=== PATIENT | male | born 1965 | race Caucasian/White ===

== ENCOUNTER → 2018-10-13 | Outpatient (CLI) | payer OTHER | END | disposition home or self-care (01) | LOC: RAH 14:21 | PROVIDERS: ATTEND Internal Medicine | DX: R35.0 Frequency of micturition (principal) | CPT/HCPCS: 76770 ==

== ENCOUNTER → 2025-08-03 | Outpatient (CLI) | payer BC ==
[2025-08-03 13:32] LABS: ASPARTATE AMINOTRANSFERASE 18.0 U/L (10-37); CREATININE 0.8 mg/dL (0.5-1.3); GLOMERULAR FILTR. RATE CALC 100.0 mL/min (>90); GLUCOSE,RANDOM 95.0 mg/dL (70-105); SODIUM SERUM 135.0 mmol/L (136-145); TOTAL PROTEIN, SERUM 7.3 g/dL (6.0-8.3); UREA NITROGEN, BLOOD 21.0 mg/dL (7-18)
== END | disposition home or self-care (01) ==
LOC: LAB 12:37
PROVIDERS: ATTEND Internal Medicine
DX: Z01.812 Encounter for preprocedural laboratory examination (principal)
CPT/HCPCS: 36415; 80053

== ENCOUNTER → 2025-08-08 | Outpatient (CLI) | payer BC ==
--- NOTE | 2025-08-08 20:02 | HMCIMG ---
EXAM: CR ABDOMEN, 1 VIEWCLINICAL HISTORY: Acute constipation.COMPARISON: None providedTECHNIQUE: Single frontal radiograph of the abdomen.FINDINGS: Bowel gas pattern: Fecal filled distended ascending and transverse colon appreciated. Free air: Not assessed on a single supine view. Organomegaly: Not seen. Calcifications: Phleboliths are seen in right hemipelvis, No pathologic calcifications observed. Bones and soft tissues: Unremarkable.IMPRESSION: * Fecal-filled distended ascending and transverse colon, compatible with constipation. /[place]
== END | disposition home or self-care (01) ==
LOC: RAH 13:19
PROVIDERS: ATTEND Internal Medicine
DX: K59.09 Other constipation (principal); K63.89 Other specified diseases of intestine; I87.8 Other specified disorders of veins
CPT/HCPCS: 74018

== ENCOUNTER → 2025-08-15 | Outpatient (CLI) | payer BC ==
[~2025-08-15] MED LIST: IOHEXOL 350 MG/ML 100ML INFUS..BTL IV ONE
--- NOTE | 2025-08-15 22:19 | HMCIMG ---
EXAM: CT SCAN OF THE ABDOMEN AND PELVIS WITH CONTRAST Clinical statement: Left lower quadrant pain and suspected intra-abdominal or pelvic swelling/mass. STUDY PROTOCOL: CT radiation dose protocol was performed in accordance with the principles of ALARA. A multislice CT scan of the abdomen and pelvis was performed after administration of intravenous contrast, with oral contrast also given. Sections were obtained from the diaphragms to the inguinal region, including delayed/excretory phase images. RADIATION DOSE: CTDIvol 62.10 mGy; DLP 3321.10 mGy???cm. CONTRAST: Standard dose of intravenous contrast and oral contrast administered. COMPARISON: Abdominal radiograph from 08/08/2025 at 13:42. FINDINGS: LUNG BASE: Visualized lung bases are clear without consolidation or pleural effusion. A focal linear atelectatic band is noted in the right middle lobe and right lower lobe. LIVER: Liver is normal in size and contour with mild fatty infiltration and homogeneous enhancement. No focal hepatic lesion or calcification is identified. No intrahepatic or extrahepatic biliary ductal dilatation is seen. GALL BLADDER: Gall bladder wall is not thickened and the gall bladder is not distended. No gallstones, mass lesion, or pericholecystic inflammatory change is identified. PANCREAS: Pancreas is slightly atrophic in appearance but normal in contour without focal mass, ductal dilatation, peripancreatic fat stranding, or fluid collection. SPLEEN: Spleen is normal in size with homogeneous enhancement and no focal lesion. KIDNEYS: Kidneys enhance symmetrically without hydronephrosis, nephrolithiasis, or solid renal mass. Visualized ureters are normal in caliber without filling defect on excretory phase images. GIT /T/ PERITONEAL CAVITY: Stomach is decompressed to mildly distended without focal wall thickening. Mild diffuse long-segment wall thickening of small bowel loops, predominantly involving the jejunal loops, is noted without luminal obstruction, focal mass, or significant surrounding mesenteric stranding. Remaining small bowel loops are normal in caliber. Colon is normal in caliber without focal wall thickening or pericolonic inflammatory change. Appendix is visualized, normal in caliber, and without periappendiceal fat stranding. No free intraperitoneal air, free fluid, or mesenteric edema is seen. LYMPHNODES: No pathologic abdominal or pelvic lymphadenopathy is identified. RETROPERITONEUM: Both adrenal glands are normal in morphology and attenuation. Abdominal aorta and inferior vena cava are normal in course and caliber. No retroperitoneal mass or hematoma is seen. PELVIS: Urinary bladder is appropriately distended with smooth contour and no wall thickening or intraluminal filling defect. Pelvic reproductive organs appear unremarkable for age. MUSCULOSKELETAL: Degenerative changes are present in the dorsal and lumbar spine with L4???L5 spondylosis, mild chronic compression deformity of the lumbar spine, and Grade I anterolisthesis of L4 on L5. No acute destructive osseous lesion is identified. OTHER: Tiny fat-containing bilateral inguinal hernias are present. The abdominal wall and paraspinal soft tissues are otherwise unremarkable. IMPRESSION: * Mild diffuse long-segment wall thickening of small bowel loops, predominantly involving the jejunal segments, without obstruction or significant surrounding inflammatory change; this is a nonspecific finding that may reflect mild enteritis or early inflammatory change. Correlation with clinical features (including stool studies and inflammatory markers) is recommended, and further gastroenterologic evaluation or follow-up imaging may be considered if symptoms persist or worsen. * Mild hepatic steatosis without focal hepatic lesion or biliary ductal dilatation. * Atrophic-appearing pancreas without CT evidence of acute pancreatitis or focal pancreatic mass. * Degenerative changes of the dorsal and lumbar spine with mild chronic lumbar compression deformity and Grade I anterolisthesis of L4 on L5, which may contribute to chronic back symptoms in the appropriate clinical context. * Tiny fat-containing bilateral inguinal hernias, likely incidental; clinical correlation for groin symptoms is advised. * No CT evidence of an intra-abdominal or pelvic mass or acute surgically correctable pathology to account for left lower quadrant pain on this examination. /[place]
== END | disposition home or self-care (01) ==
LOC: RAH 09:38
PROVIDERS: ATTEND Nurse Practitioner Family
DX: K40.20 Bilateral inguinal hernia, without obstruction or gangrene, not specified as recurrent (principal); K76.0 Fatty (change of) liver, not elsewhere classified; M43.16 Spondylolisthesis, lumbar region; M47.816 Spondylosis without myelopathy or radiculopathy, lumbar region; R10.32 Left lower quadrant pain; R19.09 Other intra-abdominal and pelvic swelling, mass and lump; M48.56XA Collapsed vertebra, not elsewhere classified, lumbar region, initial encounter for fracture
CPT/HCPCS: 74177; Q9967